=== PATIENT | male | born 1985 | race Caucasian/White ===

== ENCOUNTER 2018-11-13 09:37 | Emergency (ER) | payer SELFPAY ==
[~2018-11-13] VITALS: Ht 180.3 cm; Wt 82.8 kg
[2018-11-13 09:44] VITALS: BP 112/75
--- NOTE | 2018-11-13 10:40 | NUR ---
sore throat for 1 week.
[2018-11-13] MEDS ORDERED: DEXAMETHASONE 4 MG/ML, 5ML ONE (10:47)
[2018-11-13] MEDS ORDERED: DEXAMETHASONE 4 MG TABLET ONE (10:49)
[2018-11-13] MEDS ORDERED: DEXAMETHASONE 4 MG TABLET PO ONE (11:00)
== END 2018-11-13 11:09 | disposition home or self-care (01) ==
LOC: ED 11:02
DX: J02.0 Streptococcal pharyngitis (principal); F17.200 Nicotine dependence, unspecified, uncomplicated
CPT/HCPCS: 87880; 99283